=== PATIENT | female | born 1995 | race Two or more races ===

== ENCOUNTER 2020-04-16 23:05 | Emergency (ER) | payer OTHER ==
[~2020-04-16] VITALS: Ht 144.8 cm; Wt 68.0 kg
[2020-04-16] MEDS ORDERED: ASPIRIN 81 MG TAB.CHEW PO ONE (23:45)
[2020-04-16] MEDS ORDERED: IV NORMAL SALINE 1000 ML BAG IV ONE (23:45)
[2020-04-17] MEDS ORDERED: MECLIZINE HCL 25 MG TABLET PO ONE
[2020-04-17] MEDS ORDERED: ASPIRIN 325 MG TABLET ONE (00:03)
[2020-04-17] MEDS ORDERED: ASPIRIN 81 MG TAB.CHEW ONE (00:04)
[2020-04-17 00:06] LABS: BASOPHILS % (AUTO) 0.3 % (0.0-2.0); EOSINOPHILS # (AUTO) 0.2 K/uL (0.0-0.7); EOSINOPHILS % (AUTO) 2.7 % (0.0-7.0); LYMPHOCYTES # (AUTO) 2.7 K/uL (20.0-40.0); LYMPHOCYTES % (AUTO) 28.8 % (20.5-51.5); MEAN CORPUSCULAR HEMOGLOBIN 28.1 uug (24.7-32.8); MEAN CORPUSCULAR HGB CONC 33 g/dL (32.3-35.6); MEAN CORPUSCULAR VOLUME 84.4 fL (75.5-95.3); MONOCYTES # (AUTO) 0.5 K/uL (2.0-10.0); MONOCYTES % (AUTO) 4.9 % (0.0-11.0); NEUTROPHILS # (AUTO) 5.8 K/uL (1.8-8.9); NEUTROPHILS % (AUTO) 63.3 % (38.5-71.5); PLATELET COUNT (AUTO) 321 K/uL (179-408); RED BLOOD CELL COUNT(AUTO) 4.62 MIL/uL (3.63-4.92); WHITE BLOOD COUNT (AUTO) 9.2 K/uL (3.8-11.8)
[2020-04-17] MEDS ORDERED: MECLIZINE HCL 25 MG TABLET ONE (00:07)
[2020-04-17 00:10] LABS: CARBON DIOXIDE 28 mmol/L (21-32); CHLORIDE 102 mmol/L (98-107); CREATININE 0.7 mg/dL (0.6-1.3); GLUCOSE 101 mg/dL (74-106); POTASSIUM 3.8 mmol/L (3.5-5.1); UREA NITROGEN, BLOOD 14 mg/dL (7-18)
[2020-04-17 00:22] LABS: ALANINE AMINOTRANSFERASE 22 U/L (14-59); ALKALINE PHOSPHATASE 106 U/L (50-136); ASPARTATE AMINOTRANSFERASE 10 U/L (15-37); BILIRUBIN,DIRECT < 0.1 mg/dL (0.0-0.2); BILIRUBIN,TOTAL 0.4 mg/dL (0.2-1.0); TOTAL PROTEIN, SERUM 7.7 g/dL (6.4-8.2)
[2020-04-17 03:28] VITALS: BP 112/69
--- NOTE | 2020-04-17 03:28 | NUR ---
IV removed. Catheter intact and site benign. Pressure and 4x4 gauze applied to site. No bleeding noted.Patient discharged to home in stable condition. Written and verbal after care instructions given. Patient verbalizes understanding of instructions. Stressed follow up or return to ER for worsening s/s. Patient ambulated with steady gait.
== END 2020-04-17 03:30 | disposition home or self-care (01) ==
LOC: ER 23:07
DX: R07.9 Chest pain, unspecified (principal); E78.5 Hyperlipidemia, unspecified
CPT/HCPCS: 36415; 70030-TC; 71045; 85025; 93005; A4663; J7030; J8597

== ENCOUNTER 2021-11-22 23:24 | Emergency (ER) | payer OTHER ==
[~2021-11-22] VITALS: Ht 152.4 cm; Wt 77.1 kg
--- NOTE | 2021-11-22 23:50 | NUR ---
PATIENT WALKED INTO ER C/O ABDOMINAL PAIN WITH BACK PAIN THAT STARTED AT 2HRS AGO WITH NAUSEA.
--- NOTE | 2021-11-22 23:59 | NUR ---
Dr. Parada on bedside for MSE.
[2021-11-23] MEDS ORDERED: ONDANSETRON HCL 4 MG TABLET ONE (00:15)
[2021-11-23] MEDS ORDERED: ONDANSETRON HCL 4 MG TABLET PO ONE (00:15)
[2021-11-23] MEDS ORDERED: IBUPROFEN 600 MG TABLET PO ONE (00:15)
[2021-11-23] MEDS ORDERED: IBUPROFEN 600 MG TABLET ONE (00:15)
[2021-11-23 00:26] LABS: *BILIRUBIN,URIN 1+ (NEGATIVE); *BLOOD, URINE NEGATIVE (NEGATIVE); *COLOR,URINE YELLOW (YELLOW); *KETONES,URINE TRACE (NEGATIVE); LEUKOCYTE ESTERASE ,URINE NEGATIVE (NEGATIVE); NITRITE, URINE NEGATIVE (NEGATIVE); UGLUCOSE NEGATIVE (NEGATIVE)
[2021-11-23 00:37] LABS: HEMATOCRIT 38.2 % (31.2-41.9); MEAN CORPUSCULAR HEMOGLOBIN 28.2 uug (24.7-32.8); MEAN CORPUSCULAR VOLUME 82.1 fL (75.5-95.3); PLATELET COUNT (AUTO) 317 K/uL (179-408)
[2021-11-23 00:41] LABS: *CLARITY,URINE HAZY (CLEAR)
[2021-11-23 00:44] LABS: BACTERIA,URINE FEW /HPF (NONE SEEN); RBC,URINE 0-3 /HPF (0-3); SQUAMOUS EPITHELIAL CELL,UR MODERATE /HPF (NONE SEEN)
[2021-11-23 00:45] LABS: *URINE HCG, QUAL NEGATIVE (NEGATIVE)
[2021-11-23 00:47] LABS: CREATININE 0.9 mg/dL (0.6-1.3); POTASSIUM 3.8 mmol/L (3.5-5.1)
[2021-11-23 00:53] LABS: BILIRUBIN,DIRECT 0.3 mg/dL (0.0-0.2); BILIRUBIN,TOTAL 0.7 mg/dL (0.2-1.0); TOTAL PROTEIN, SERUM 7.9 g/dL (6.4-8.2)
[2021-11-23] MEDS ORDERED: HYDROMORPHONE 1 MG/1 ML DISP.SYRIN IV ONE (02:30)
[2021-11-23] MEDS ORDERED: HYDROMORPHONE 1 MG/1 ML DISP.SYRIN ONE (02:33)
--- NOTE | 2021-11-23 03:54 | NUR ---
Telephone call to [facility] to follow up result of gallbladder US, spoke to Diaz and stated that he will have someone read report.
--- NOTE | 2021-11-23 04:20 | NUR ---
Dr Parada on panel call with Gunnar moore MD.
--- NOTE | 2021-11-23 04:28 | NUR ---
Dr. Parada on bedside
--- NOTE | 2021-11-23 05:28 | NUR ---
Patient asleep at this time. In no acute distress. No further complain of pain. Continue to monitor.
--- NOTE | 2021-11-23 06:38 | NUR ---
Called [facility] ambulance, spoke to Parth. ETA 45 mins to transfer pt to [facility].
--- NOTE | 2021-11-23 06:39 | NUR ---
Telephone call to [facility], spoke to Mackenzie and gave report.
--- NOTE | 2021-11-23 07:16 | NUR ---
[id number] with 2 paramedics arrived to mixing picker tender patient, to transfer to [facility]. Report given. Medical records provided. Belongings with the patient.
--- NOTE | 2021-11-23 07:17 | NUR ---
Patient Tranfers to outside Facility: [facility] Physician:Dr. Taylor Location:room [id number]
== END 2021-11-23 07:20 | disposition short-term general hospital (02) ==
LOC: ER 23:32
DX: K83.8 Other specified diseases of biliary tract (principal); K80.20 Calculus of gallbladder without cholecystitis without obstruction; K76.0 Fatty (change of) liver, not elsewhere classified; Z20.822 Contact with and (suspected) exposure to COVID-19
CPT/HCPCS: 99285; 96374; 76705; 87426; 80076; 80048; 81001; 84703; 83690; 85025; 87086; 36415; 72072; J1170; A4663; Q0162